=== PATIENT | male | born 1995 | race Caucasian/White ===

== ENCOUNTER 2021-08-12 09:26 | Emergency (ER) | payer OTHER ==
[2021-08-12] MEDS ORDERED: ONDANSETRON 4 MG/2 ML VIAL IVPUSH ONE (09:43)
[2021-08-12] MEDS ORDERED: ACETAMINOPHEN 500 MG TABLET (FP) PO ONE (09:43)
[2021-08-12] MEDS ORDERED: SODIUM CHLORIDE 1,000 ML IV STA (09:43)
[2021-08-12 09:58] VITALS: BP 132/77; PULSE 84; TEMP 99; BMI 30.2
[2021-08-12] MEDS ORDERED: KETOROLAC TROMETHAMINE 15 MG/ML VIAL IM ONE (10:00)
[2021-08-12] MEDS ORDERED: KETOROLAC TROMETHAMINE 30 MG/1 ML VIAL ONE (10:30)
[2021-08-12] MEDS ORDERED: PRESCRIPTION PAD 1 EACH EACH NR ONE (10:30)
== END 2021-08-12 12:17 | disposition home or self-care (01) ==
LOC: FER 09:26
PROC: 3E023GC Introduction of Other Therapeutic Substance into Muscle, Percutaneous Approach (ICD-10-PCS; principal; 2021-08-12)
PROC: 3E033GC Introduction of Other Therapeutic Substance into Peripheral Vein, Percutaneous Approach (ICD-10-PCS; principal; 2021-08-12)
DX: J02.8 Acute pharyngitis due to other specified organisms (principal); B34.9 Viral infection, unspecified
CPT/HCPCS: 36415; 71046-TC-FY; 82272; 87651; 87804; 87807; 96361; 96372; 96374; 99284-25; C9803; U0003; U0005

== ENCOUNTER 2024-09-08 09:49 | Emergency (ER) | payer OTHER ==
[2024-09-08 10:09] VITALS: BP 143/76; PULSE 70; RESP 20; TEMP 98.1; BMI 21.2
[2024-09-08] MEDS ORDERED: ONDANSETRON *ODT* 4 MG TABLET SL ONE (10:13)
[2024-09-08] MEDS ORDERED: FAMOTIDINE 10 MG TABLET PO ONE (10:13)
[2024-09-08] MEDS ORDERED: ONDANSETRON 4 MG/2 ML VIAL ONE (10:52)
[2024-09-08] MEDS ORDERED: FAMOTIDINE 20 MG/50 ML IVPB 20 MG/50 ML MG IVPB ONE (10:53)
[2024-09-08] MEDS ORDERED: MAG HYDROX/AL HYDROX/SIMETH 30 ML UNIT-DOSE CUP ONE (10:53)
[2024-09-08] MEDS: SODIUM CHLORIDE 0.9% 500 ML INFUS.BAG IV ONE (10:57)
[2024-09-08] MEDS: MAG HYDROX/AL HYDROX/SIMETH -MYLANTA- ORAL SUSPENSION PO ONE (10:57)
[2024-09-08] MEDS: FAMOTIDINE 20 MG/50 ML IVPB 20 MG in PREMIX 50 IVPB ONE (10:58)
[2024-09-08] MEDS: ONDANSETRON 4 MG/2 ML VIAL IVPB ONE (10:58)
[2024-09-08 11:34] LABS: MCH 26.3 pg (25.7-33.7); MCHC 31.8 g/dl (32.0-35.9); MEAN CELL VOLUME 82.7 fl (80-96); MEAN PLT VOLUME 8.9 fl (7.5-11.1); PLATELET COUNT 260.7 10^3/uL (134-434); RBC 5.32 10^6/uL (4.00-5.60); RDW 14.3 % (11.9-15.9); WHITE BLOOD COUNT 7.3 10^3/uL (4.0-10.8)
[2024-09-08 11:47] LABS: ALK PHOS 57 U/L (45-117); ANION GAP 7 mmol/L (4-13); BILIRUBIN,TOTAL 0.8 mg/dl (0.2-1); CALCIUM 10.1 mg/dl (8.5-10.1); CHLORIDE 103 mmol/L (98-107); CO2 31 mmol/L (21-32); CREATININE 0.9 mg/dl (0.6-1.3); GLUCOSE,RANDOM 78 mg/dl (74-106); SGOT/AST 15 U/L (15-37); SGPT/ALT 9 U/L (7-52); SODIUM 141 mmol/L (136-145)
[2024-09-08 12:27] LABS: PLATELET ESTIMATE ADEQUATE
[2024-09-08 14:38] LABS: HIV INTERPRETATION NEGATIVE (NEGATIVE)
== END 2024-09-08 12:49 | disposition home or self-care (01) ==
LOC: FER 09:49
PROC: 3E033GC Introduction of Other Therapeutic Substance into Peripheral Vein, Percutaneous Approach (ICD-10-PCS; principal; 2024-09-08)
PROC: 3E033GC Introduction of Other Therapeutic Substance into Peripheral Vein, Percutaneous Approach (ICD-10-PCS; 2024-09-08)
DX: K21.9 Gastro-esophageal reflux disease without esophagitis (principal); R10.13 Epigastric pain; R07.9 Chest pain, unspecified
CPT/HCPCS: 36415; 80053; 83690; 85027; 86803; 87389; 99284-25

== ENCOUNTER 2024-10-10 23:59 | Emergency (ER) | payer OTHER ==
[2024-10-11 00:07] VITALS: BP 122/78; PULSE 53; RESP 16; TEMP 98.2; BMI 21.2
[2024-10-11] MEDS ORDERED: ACETAMINOPHEN 500 MG TABLET (FP) ONE (01:38)
[2024-10-11] MEDS: ACETAMINOPHEN 500 MG TABLET (FP) PO ONE (01:39)
== END 2024-10-11 01:47 | disposition home or self-care (01) ==
LOC: FER 23:59
DX: S09.90XA Unspecified injury of head, initial encounter (principal); K08.409 Partial loss of teeth, unspecified cause, unspecified class; W01.198A Fall on same level from slipping, tripping and stumbling with subsequent striking against other object, initial encounter
CPT/HCPCS: 70450-TC; 70486-TC; 72125-TC; 99284-25

== ENCOUNTER 2024-12-20 23:48 | Emergency (ER) | payer OTHER ==
[2024-12-20 23:52] VITALS: TEMP 98.9; BMI 21.2
[2024-12-21] MEDS ORDERED: ONDANSETRON 4 MG/2 ML VIAL ONE (00:07)
[2024-12-21] MEDS ORDERED: FAMOTIDINE 20 MG/50 ML IVPB 20 MG/50 ML MG IVPB ONE (00:07)
[2024-12-21] MEDS ORDERED: ACETAMINOPHEN INJECTION 100 ML ONE (00:07)
[2024-12-21] MEDS: LACTATED RINGERS SOLUTION 1000 ML INFUS.BAG IV ONE ×2 (00:20→01:23)
[2024-12-21] MEDS: FAMOTIDINE 20 MG/50 ML IVPB 20 MG/50 ML MG IVPB ONE (00:21)
[2024-12-21] MEDS: ONDANSETRON 4 MG/2 ML VIAL IVPUSH ONE (00:21)
[2024-12-21 00:23] LABS: ABSOLUTE IMMATURE GRANULOCYTES 0.02 x10^3/uL (0.0-0.031); BASOPHILS # 0.02 x10^3/uL (0.01-0.08); HEMATOCRIT 41.8 % (40.1-51.0); HEMOGLOBIN 13.2 g/dL (13.7-17.5); MCHC 31.6 g/dl (32.3-36.5); MEAN CELL VOLUME 83.8 fl (79.0-92.2); MEAN PLT VOLUME 10.7 fl (9.4-12.4); MONOCYTE # 0.58 x10^3/uL (0.30-0.82); PLATELET COUNT 195 x10^3/uL (163-337); RDW 12.8 % (11.9-15.3)
[2024-12-21] MEDS: ACETAMINOPHEN 1000 MG/100 ML BAG IVPB ONE (00:23)
[2024-12-21 00:43] LABS: POTASSIUM 3.6 mmol/L (3.5-5.1)
[2024-12-21 00:45] LABS: ALBUMIN 3.9 g/dl (3.4-5.0); BLOOD UREA NITROGEN 15.1 mg/dL (7-18); MAGNESIUM 1.9 mg/dL (1.8-2.4)
[2024-12-21 00:50] LABS: BILIRUBIN,TOTAL 0.3 mg/dL (0.2-1); TOT PROT 7.5 g/dl (6.4-8.2)
[2024-12-21] MEDS ORDERED: KETOROLAC TROMETHAMINE 15 MG/ML VIAL ONE (01:17)
[2024-12-21] MEDS: KETOROLAC TROMETHAMINE 15 MG/ML VIAL IVPUSH ONE (01:23)
[2024-12-21 02:08] VITALS: BP 123/58; PULSE 55; RESP 18
== END 2024-12-21 02:34 | disposition home or self-care (01) ==
LOC: JER 23:48
PROC: 3E033GC Introduction of Other Therapeutic Substance into Peripheral Vein, Percutaneous Approach (ICD-10-PCS; principal; 2024-12-21)
PROC: 3E033NZ Introduction of Analgesics, Hypnotics, Sedatives into Peripheral Vein, Percutaneous Approach (ICD-10-PCS; 2024-12-21)
PROC: 3E033GC Introduction of Other Therapeutic Substance into Peripheral Vein, Percutaneous Approach (ICD-10-PCS; 2024-12-21)
PROC: 3E033GC Introduction of Other Therapeutic Substance into Peripheral Vein, Percutaneous Approach (ICD-10-PCS; 2024-12-21)
DX: J10.1 Influenza due to other identified influenza virus with other respiratory manifestations (principal)
CPT/HCPCS: 0241U-QW; 36415; 71045-TC-FY; 80053; 83605; 83735; 85025; 87651; 93005; 93010; 99285-25; J0131

== ENCOUNTER 2024-12-22 12:17 | Emergency (ER) | payer OTHER ==
[2024-12-22 12:25] VITALS: BP 128/77; PULSE 62; RESP 18; TEMP 98.5; BMI 21.2
== END 2024-12-22 13:42 | disposition home or self-care (01) ==
LOC: FER 12:17
DX: J10.1 Influenza due to other identified influenza virus with other respiratory manifestations (principal); F41.9 Anxiety disorder, unspecified; R55 Syncope and collapse; R07.9 Chest pain, unspecified; R13.10 Dysphagia, unspecified
CPT/HCPCS: 36415; 71045-TC-FY; 84484; 93005; 99285-25